=== PATIENT | female | born 1945 | race Caucasian/White ===

== ENCOUNTER → 2022-05-02 | Outpatient (CLI) | payer OTHER ==
[~2022-05-02] MED LIST: ATORVASTATIN CA40 M1 PO; CETIRIZINE HYDR10 MG PO; LEVOTHYROXINE0.1 M1 PO; LISINOPRIL AND1 TAB PO; NOVAPLUS V0.09 MG/Ac IH; OYSTER SHELL CA1 T20 PO; ULTRAM50 MG PO
== END | disposition home or self-care (01) ==
LOC: RAD 10:30 → MAMMO 11:00
PROVIDERS: ATTEND Internal Medicine Nephrology
DX: Z12.31 Encounter for screening mammogram for malignant neoplasm of breast (principal); N64.9 Disorder of breast, unspecified; M81.0 Age-related osteoporosis without current pathological fracture; M85.852 Other specified disorders of bone density and structure, left thigh

== ENCOUNTER → 2025-01-03 | Outpatient (CLI) | payer OTHER | END | disposition home or self-care (01) | LOC: RAD 02:25 | PROVIDERS: ATTEND Internal Medicine Nephrology | DX: M85.862 Other specified disorders of bone density and structure, left lower leg (principal); Z13.820 Encounter for screening for osteoporosis; N95.9 Unspecified menopausal and perimenopausal disorder ==

== ENCOUNTER → 2025-04-23 | Outpatient (CLI) | payer OTHER | END | disposition home or self-care (01) | LOC: MAMMO 01:58 | PROVIDERS: ATTEND Internal Medicine Nephrology | DX: Z12.31 Encounter for screening mammogram for malignant neoplasm of breast (principal); R92.313 Mammographic fatty tissue density, bilateral breasts ==